=== PATIENT | male | born 1980 | race Hispanic/Latino ===

== ENCOUNTER 2017-07-04 10:51 | Outpatient (RCR) | payer MEDICARE, BC | END 2017-07-16 | LOC: PT 10:51 | PROVIDERS: ATTEND Psychiatry & Neurology Neurology | DX: G95.9 Disease of spinal cord, unspecified (principal); M54.5 Low back pain; M79.651 Pain in right thigh; M79.662 Pain in left lower leg; M79.661 Pain in right lower leg; M76.52 Patellar tendinitis, left knee; R26.2 Difficulty in walking, not elsewhere classified; M62.81 Muscle weakness (generalized) | CPT/HCPCS: 97110 ×5; 97112 ×2; 97163; G8978; G8979 ==

== ENCOUNTER 2017-08-08 09:56 | Outpatient (RCR) | payer MEDICARE, BC | END 2017-08-16 | LOC: PT 09:56 | PROVIDERS: ATTEND Psychiatry & Neurology Neurology | DX: G95.9 Disease of spinal cord, unspecified (principal); M54.5 Low back pain; M79.652 Pain in left thigh; M79.651 Pain in right thigh; M79.662 Pain in left lower leg; M79.661 Pain in right lower leg; M62.81 Muscle weakness (generalized); R26.2 Difficulty in walking, not elsewhere classified | CPT/HCPCS: 97139 ==

== ENCOUNTER 2018-06-23 20:09 | Emergency (ER) | payer BC, MEDICARE ==
[~2018-06-23] VITALS: Ht 172.7 cm; Wt 95.3 kg
--- OUTSIDE RECORDS SUMMARY | 2018-06-23 20:11 | XMS REPORT | Continuity of Care Document ---
Author Author [facility] Interface Address Unknown Phone Unavailable Problems Problem Status Onset Date Classification Date Reported Comments Source Medications Medication Details Route Status Patient Instructions Ordering Provider Order Date Source Allergies, Adverse Reactions, Alerts Substance Category Reaction Severity Reaction type Status Date Reported Comments Source Immunizations Immunization Date Given Site Status Last Updated Comments Source Results Order Name Results Value Reference Range Date Interpretation Comments Source Vital Signs Vital Sign Value Date Comments Source Encounters Location Location Details Encounter Type Encounter Number Reason For Visit Attending Provider ADM Date DC Date Status Source Discharged Recurring [id number] RADAH GROVES MD 06/23/2017 07/16/2017 [facility] Discharged Recurring [id number] RADHA GROVES MD 08/08/2017 08/16/2017 [facility] Procedures Procedure Code Date Perfomer Comments Source
[2018-06-23] MEDS ORDERED: MORPHINE SULFATE INJ 4 MG/ML INJ 1ML IV STA (20:28)
[2018-06-23] MEDS ORDERED: SODIUM CHLORIDE 0.9% 500ML 500 ML IV STA (20:28)
[2018-06-23] MEDS ORDERED: FAMOTIDINE 20 MG/2 ML VIAL IV ONE (20:30)
[2018-06-23] MEDS ORDERED: CLONIDINE HCL 0.2 MG TAB PO ONE (20:30)
[2018-06-23] MEDS ORDERED: ONDANSETRON HCL INJ 2MG/ML 2ML 2 MG/ML VIAL IV NR (20:30)
--- NOTE | 2018-06-23 21:22 | Diagnostic Imaging Report ---
EXAM: CT Abdomen and Pelvis WITHOUT contrast INDICATION: Pain COMPARISON: None. TECHNIQUE: Abdomen and Pelvis was scanned utilizing a multidetector helical scanner without the use of IV contrast. Coronal and sagittal reformations were obtained. IV CONTRAST: None COMPLICATIONS: None RADIATION DOSE: Total DLP: 851 mGy*cm Estimated effective dose: (DLP x 0.015 x size factor) mSv CTDIvol has been reviewed. It is below the limits set by the Radiation Protocol Committee (RPC). Appropriate CT dose reduction techniques were utilized. FINDINGS: Abdomen: Lung Bases: No acute findings. Solid Organs: Markedly atrophic [place] kidneys with multiple cysts. Metallic densities adjacent to left kidney. Otherwise, nonenhanced images of liver, adrenals, spleen, and pancreas unremarkable. Upper GI Tract: No small bowel obstructive change. Vascularity: No aortic aneurysm. Lymph Nodes: No suspicious adenopathy. Other: None. Pelvis: Bladder: Unremarkable. Other: Patulous left inguinal canal. Transplant kidney right pelvis with no perinephric stranding, hydronephrosis, or ureteral calculus. Colon: There are a few scattered diverticula with no CT evidence of diverticulitis. Appendectomy changes present. Bones: No acute findings. IMPRESSION: 1. No acute findings. 2. See above for chronic changes. Signed by: Dr. Garland Chavez MD on 06/23/2018 9:19 PM
[2018-06-23] MEDS ORDERED: BACTRIM DS TAB1 EACH PO (23:16)
[2018-06-23] MEDS ORDERED: TACROLIMUS1 MG PO (23:16)
[2018-06-23] MEDS ORDERED: AMLODIPINE BESY10 MG PO (23:16)
[2018-06-23] MEDS ORDERED: MYCOPHENOLATE250 MG PO (23:16)
[2018-06-23] MEDS ORDERED: VASOTEC5 MG PO (23:16)
[2018-06-23] MEDS ORDERED: BACLOFEN10 MG PO (23:16)
[2018-06-23] MEDS ORDERED: PREDNISONE5 MG (23:16)
== END 2018-06-23 23:46 | disposition other institution (70) ==
LOC: FSED 20:09
DX: R10.33 Periumbilical pain (principal); R11.0 Nausea; K85.00 Idiopathic acute pancreatitis without necrosis or infection
CPT/HCPCS: 74176; 80048; 80076; 81003; 85025; 99284; J2270; J7040